=== PATIENT | male | born 1960 ===

== ENCOUNTER 2021-08-10 08:55 | Emergency (ER) | payer SELFPAY ==
[~2021-08-10] VITALS: Ht 172.7 cm; Wt 72.7 kg
[2021-08-10 09:06] VITALS: BP 114/60
[2021-08-10] MEDS ORDERED: CYCL-448 PO (09:29)
[2021-08-10] MEDS ORDERED: IBUP-2070 PO (09:29)
[2021-08-10] MEDS ORDERED: IBUPROFEN 600 MG TABLET PO ONE (09:30)
[2021-08-10] MEDS ORDERED: CYCLOBENZAPRINE HCL 10 MG TABLET PO ONE (09:30)
== END 2021-08-10 09:46 | disposition home or self-care (01) ==
LOC: EMS 08:55
DX: M79.604 Pain in right leg (principal); M79.605 Pain in left leg; V49.9XXA Car occupant (driver) (passenger) injured in unspecified traffic accident, initial encounter; Y93.89 Activity, other specified; Y92.488 Other paved roadways as the place of occurrence of the external cause; Y99.8 Other external cause status
CPT/HCPCS: 99283